=== PATIENT | male | born 1970 | race African-American/Black ===

== ENCOUNTER 2018-04-24 21:38 | Emergency (ER) | payer BC ==
[~2018-04-24] VITALS: Ht 180.3 cm; Wt 97.7 kg
[2018-04-24 21:43] VITALS: TEMP 98.2
[2018-04-24] MEDS ORDERED: NORCO 325 MG-51 TAB PO (22:56)
[2018-04-24] MEDS ORDERED: PERCOCET 325 MG1 TA2 PO (23:41)
[2018-04-24 23:53] VITALS: BP 128/78; PULSE 69
== END 2018-04-24 23:50 | disposition home or self-care (01) ==
LOC: COL.ER 21:38
DX: S62.314A Displaced fracture of base of fourth metacarpal bone, right hand, initial encounter for closed fracture (principal); W01.198A Fall on same level from slipping, tripping and stumbling with subsequent striking against other object, initial encounter

== ENCOUNTER 2018-05-25 22:56 | Emergency (ER) | payer BC ==
[~2018-05-25] VITALS: Ht 180.3 cm; Wt 94.1 kg
[~2018-05-25 22:56] MED LIST: NORCO 325 MG-51 TAB PO; PERCOCET 325 MG1 TA2 PO
[2018-05-25 23:01] VITALS: BP 134/91; TEMP 98
[2018-05-25] MEDS ORDERED: ATARAX50 MG PO (23:21)
[2018-05-25 23:47] VITALS: PULSE 63
== END 2018-05-25 23:45 | disposition home or self-care (01) ==
LOC: COL.ER 22:56
DX: F41.9 Anxiety disorder, unspecified (principal); F17.210 Nicotine dependence, cigarettes, uncomplicated; Z98.890 Other specified postprocedural states